=== PATIENT | male | born 1970 | race Caucasian/White ===

== ENCOUNTER 2018-08-03 20:03 | Emergency (ER) | payer SELFPAY ==
[2018-08-03 20:45] VITALS: BP 159/98; PULSE 76; TEMP 99.1; BMI 29.5
[2018-08-03] MEDS ORDERED: DIPHTH,PERTUSS(ACELL),TET 0.5 ML DISP.SYRIN IM ONE (21:14)
--- NOTE | 2018-08-03 21:52 | PDOC ---
History of Present Illness - General Chief Complaint: Laceration Stated Complaint: RIGHT ARM INJURY Time Seen by Provider: 08/03/18 21:05 History Source: Patient Exam Limitations: Language Barrier - History of Present Illness Initial Comments: 08/03/18 21:47 pt at work tripped and fell injured left elbow causing laceration. Past History - Past Medical History Allergies/Adverse Reactions: Allergies Allergy/AdvReac Type Severity Reaction Status Date / Time No Known Allergies Allergy Verified 08/03/18 20:45 Home Medications: Ambulatory Orders NK [No Known Home Medication] 08/03/18 COPD: No - Suicide/Smoking/Psychosocial Hx Smoking History: Never smoked Have you smoked in the past 12 months: Yes Number of Cigarettes Smoked Daily: 2 Information on smoking cessation initiated: No Hx Alcohol Use: No Drug/Substance Use Hx: No Substance Use Type: None *Physical Exam - Vital Signs Last Vital Signs Temp Pulse Resp BP Pulse Ox 99.1 F 76 17 159/98 100 08/03/18 20:42 08/03/18 20:42 08/03/18 20:42 08/03/18 20:42 08/03/18 20:42 - Physical Exam General Appearance: Yes: Nourished, Appropriately Dressed HEENT: positive: EOMI, LEIGHA Extremity: positive: Normal Capillary Refill, Normal Inspection, Normal Range of Motion, Other (left elbow with 5.5 cm linear jagged flap laceration to muscle , tendon intact, FROM of the elbow neg bony tenderness, neg numbness or tingling ) Integumentary: positive: Normal Color, Dry, Warm Neurologic: positive: Fully Oriented, Alert, Normal Mood/Affect, Normal Response , Motor Strength 5/5 Procedures - Laceration/Wound Repair Left Lateral Elbow Wound Length: 5.0 to 7.5 cm Wound Explored: clean Wound's Depth, Shape: into muscle, flap Irrigated w/ Saline: Yes Betadine Prep: Yes Anesthesia: 1% Lidocaine w/ Epi Amount of Anesthetic (ccs): 5 Wound Repaired With: Sutures Suture Size/Type: 4:0, nylon Number of Sutures: 12 Layer Closure: No Sterile Dressing Applied: Yes ED Treatment Course - Medications Given in the ED: ED Medications Discontinued Medications Generic Name Dose Route Start Last Admin Trade Name Freq PRN Reason Stop Dose Admin Diphtheria/Tetanus/Acell Pertussis 0.5 ml 08/03/18 21:14 08/03/18 21:38 Boostrix - IM 08/03/18 21:15 0.5 ml .ONCE ONE Administration Medical Decision Making - Medical Decision Making 08/03/18 21:59 cc: laceration to the elbow after he fell on metal at work 1hr [employer] will update tetanus wound clean pt was wearing long sleeve sweatshirt wound has been irrigated with copious amounts of saline, betadine sutured closed bacitracin and bulky wrap placed dc inst given in venezuelan all translation done via women specialist *DC/Admit/Observation/Transfer Diagnosis at time of Disposition: Laceration - Discharge Dispostion Disposition: HOME Condition at time of disposition: Improved - Referrals - Patient Instructions Printed Discharge Instructions: DI for Laceration Repair Additional Instructions: keep dry remove the dressing in 3 days gently clean daily with warm water on a cotton ball to remove any dried blood apply bacitracin once a day and cover with large sized bandaid make sure the wound is kept dry return in 10 days for suture removal no August 13 after 8am return sooner if any redness, pain or any other concerns Mantener seco quitar el apsito en 3 armstrong. Limpie suavemente diariamente con agua tibia en derrell nigel de algodn para eliminar la mono seca Aplicar bacitracina derrell vez al da y cubrir con bandaid de gran tamao. Asegrate de que la herida se mantenga seca Regrese en 10 armstrong para retirar la sutura el 12 de noviembre despus de las 8 am Regrese antes si hay enrojecimiento, dolor o cualquier otra inquietud. Print Language: GUAMANIAN - Post Discharge Activity Forms/Work/School Notes: Back to Work
== END 2018-08-03 22:06 | disposition home or self-care (01) ==
LOC: JERFT 20:03
PROC: 0JQH0ZZ Repair Left Lower Arm Subcutaneous Tissue and Fascia, Open Approach (ICD-10-PCS; principal; 2018-08-03)
PROC: 3E0234Z Introduction of Serum, Toxoid and Vaccine into Muscle, Percutaneous Approach (ICD-10-PCS; 2018-08-03)
DX: S51.012A Laceration without foreign body of left elbow, initial encounter (principal); W01.0XXA Fall on same level from slipping, tripping and stumbling without subsequent striking against object, initial encounter; Y93.89 Activity, other specified; Y92.63 Factory as the place of occurrence of the external cause; Y99.0 Civilian activity done for income or pay
CPT/HCPCS: 90715; 99281-25

== ENCOUNTER 2018-08-09 23:18 | Emergency (ER) | payer SELFPAY ==
[2018-08-09 23:24] VITALS: BP 140/86; PULSE 75; TEMP 97.5; BMI 28.9
--- NOTE | 2018-08-10 01:10 | PDOC ---
History of Present Illness - General Chief Complaint: Redness To Affected Area Stated Complaint: PAIN Time Seen by Provider: 08/09/18 23:29 History Source: Patient Exam Limitations: Language Barrier (authorization coordinator) - History of Present Illness Initial Comments: 47 y/o M hx of HTN, pre-DM presents with concern for swelling to L elbow x 2 days. Patient was seen 08/03 for L elbow laceration which was repaired with sutures. Patient denies any new trauma to the site, redness, discharge. 08/10/18 01:06 Past History - Past Medical History Allergies/Adverse Reactions: Allergies Allergy/AdvReac Type Severity Reaction Status Date / Time No Known Allergies Allergy Verified 08/03/18 20:45 Home Medications: Ambulatory Orders Sulfamethoxazole/Trimethoprim [Bactrim Ds -] 1 tab PO BID #14 tablet 08/10/18 COPD: No HTN: Yes Other medical history: Pre-DM - Immunization History Immunization Up to Date: Yes - Suicide/Smoking/Psychosocial Hx Smoking History: Never smoked Have you smoked in the past 12 months: Yes Number of Cigarettes Smoked Daily: 2 Hx Alcohol Use: No Drug/Substance Use Hx: No Substance Use Type: None Review of Systems - Review of Systems Comments:: See HPI 08/10/18 01:09 Constitutional: No: Chills, Fever *Physical Exam - Vital Signs Last Vital Signs Temp Pulse Resp BP Pulse Ox 97.5 F L 75 18 140/86 98 08/09/18 23:21 08/09/18 23:21 08/09/18 23:21 08/09/18 23:21 08/09/18 23:21 - Physical Exam Comments: On PE, patient appears in NAD. L elbow with FROM. Sutures intact. No erythema around wound and no discharge noted. Mild swelling noted around suture site with very minimal TTP; no induration or fluctuance to site was noted. 08/10/18 01:09 General Appearance: No: Apparent Distress Medical Decision Making - Medical Decision Making 47 y/o M presents with swelling to L elbow suture site s/p laceration repair 08/03. Site does not appear infected and not concerning for cellulitis or abscess. Also unlikely fracture or hematoma given no new injury, FROM of LUE and no bruise to site. Consider possible early infection given mild pain to site? Will start patient on Bactrim as discussed with Dr. Saba. 08/10/18 01:10 *DC/Admit/Observation/Transfer Diagnosis at time of Disposition: Swelling - Discharge Dispostion Disposition: HOME Condition at time of disposition: Stable Decision to Admit order: No - Prescriptions Prescriptions: Sulfamethoxazole/Trimethoprim [Bactrim Ds -] 1 tab PO BID #14 tablet - Referrals Referrals: Jamaal Greenwood MD [Primary Care Provider] - 3 days - Patient Instructions Additional Instructions: Thank you for choosing [facility]. It was a pleasure taking care of you. You were seen here for swelling along site of prior repaired laceration. Due to concern that this may be possible developing infection, you were started on Bactrim, an antibiotic. You may also take Motrin 600 mg every 4 hours as needed for pain and/or swelling. Take medication with food. Return on 08/13 to get your sutures removed Return to the Emergency Department if your symptoms worsen or persist, you have fever, redness, streaking from wound site, purulent discharge from site or other concerning symptoms. - Post Discharge Activity
[2018-08-10] MEDS ORDERED: SULFAMETHOXAZOLE/TRIMETHOPRIM 800MG/160MG D.S. TABLET PO ONE (01:40)
[2018-08-10] MEDS ORDERED: SULFAMETHOXAZOLE/TRIMETHOPRIM 800MG/160MG D.S. TABLET ONE (01:50)
--- NOTE | 2018-08-10 01:57 | PDOC ---
*Physical Exam - Vital Signs Last Vital Signs Temp Pulse Resp BP Pulse Ox 97.5 F L 75 18 140/86 98 08/09/18 23:21 08/09/18 23:21 08/09/18 23:21 08/09/18 23:21 08/09/18 23:21 - Physical Exam Comments: 08/10/18 01:55 Afebrile, vital signs normal Right forearm: Well healing laceration with intact sutures and no active discharge, there is surrounding soft tissue swelling with subtle erythema and tenderness, no induration or fluctuance. Neurovascularly intact distally without joint effusions. ED Treatment Course - Medications Given in the ED: ED Medications Discontinued Medications Generic Name Dose Route Start Last Admin Trade Name Freq PRN Reason Stop Dose Admin Trimethoprim/Sulfamethoxazole 1 each 08/10/18 01:40 08/10/18 01:52 Bactrim Ds - PO 08/10/18 01:41 1 each ONCE ONE Administration Medical Decision Making - Medical Decision Making 08/10/18 01:56 47-year-old male with recent laceration through close status post repair, now with likely early cellulitis. No evidence of abscess, neurovascularly intact without evidence of sepsis. Initiate antibiotics as outpatient Return criteria discussed, will closely monitor and otherwise return for his scheduled suture removal *DC/Admit/Observation/Transfer Diagnosis at time of Disposition: Swelling - Discharge Dispostion Disposition: HOME Condition at time of disposition: Stable - Referrals Referrals: Jamaal Greenwood MD [Primary Care Provider] - 3 days - Patient Instructions Additional Instructions: Thank you for choosing [facility]. It was a pleasure taking care of you. You were seen here for swelling along site of prior repaired laceration. Due to concern that this may be possible developing infection, you were started on Bactrim, an antibiotic. You may also take Motrin 600 mg every 4 hours as needed for pain and/or swelling. Take medication with food. Return on 08/13 to get your sutures removed Return to the Emergency Department if your symptoms worsen or persist, you have fever, redness, streaking from wound site, purulent discharge from site or other concerning symptoms. - Post Discharge Activity
== END 2018-08-10 01:52 | disposition home or self-care (01) ==
LOC: JER 23:18
DX: R22.32 Localized swelling, mass and lump, left upper limb (principal); S51.012D Laceration without foreign body of left elbow, subsequent encounter; W01.0XXD Fall on same level from slipping, tripping and stumbling without subsequent striking against object, subsequent encounter
CPT/HCPCS: 99281-25

== ENCOUNTER 2018-08-20 07:56 | Emergency (ER) | payer SELFPAY ==
[2018-08-20 08:04] VITALS: BP 134/78; PULSE 68; TEMP 98.3; BMI 31.4
--- NOTE | 2018-08-20 08:41 | PDOC ---
History of Present Illness - General Chief Complaint: Wound Stated Complaint: ARM INJURY Time Seen by Provider: 08/20/18 08:38 History Source: Patient Exam Limitations: Clinical Condition - History of Present Illness Initial Comments: 08/20/18 08:45 Patient with no significant past medical history present with complaint of wound opening up right forearm laceration which have pain over 2 weeks ago. Patient was seen for 2 weeks ago for laceration to right forearm and was closed with sutures and suture removal week after. Patient reported wound opening back up last night. Patient denies pain or drainage from wound site. Timing/Duration: other (2 weeks) Past History - Past Medical History Allergies/Adverse Reactions: Allergies Allergy/AdvReac Type Severity Reaction Status Date / Time No Known Allergies Allergy Verified 08/20/18 08:01 Home Medications: Ambulatory Orders NK [No Known Home Medication] 08/10/18 COPD: No HTN: Yes - Immunization History Immunization Up to Date: Yes - Suicide/Smoking/Psychosocial Hx Smoking History: Current some day smoker Have you smoked in the past 12 months: Yes Number of Cigarettes Smoked Daily: 3 Information on smoking cessation initiated: No Hx Alcohol Use: No Drug/Substance Use Hx: No Substance Use Type: None Review of Systems - Review of Systems Able to Perform ROS?: Yes Is the patient limited Martiniquais proficient: No Constitutional: No: Chills, Fever Respiratory: No: Symptoms reported Cardiac (ROS): No: Symptoms Reported ABD/GI: No: Symptoms Reported Musculoskeletal: Yes: See HPI, Other (right forearm laceration). No: Muscle Pain, Muscle Weakness Integumentary: Yes: Other (right forearm laceration). No: Erythema *Physical Exam - Vital Signs Last Vital Signs Temp Pulse Resp BP Pulse Ox 98.3 F 68 16 134/78 98 08/20/18 08:01 08/20/18 08:01 08/20/18 08:01 08/20/18 08:01 08/20/18 08:01 - Physical Exam General Appearance: Yes: Nourished, Appropriately Dressed. No: Apparent Distress HEENT: positive: Normal ENT Inspection Neck: positive: Supple Respiratory/Chest: negative: Respiratory Distress Cardiovascular: positive: Regular Rhythm, Regular Rate Gastrointestinal/Abdominal: negative: Tender Extremity: positive: Other (4cm laceration with wound dehiscense to lateral side of right proximal forearm. no erythema or drainage from wound site) Integumentary: positive: Other (4cm linear laceration with wound dehiscense to lateral aspect of right forearm) Neurologic: positive: Fully Oriented Procedures - Laceration/Wound Repair Right Posterior Lateral Proximal Arm Wound Length: 2.6 to 5.0 cm (4cm) Wound Explored: clean, no foreign body present Wound's Depth, Shape: superficial Irrigated w/ Saline: Yes Betadine Prep: Yes Amount of Anesthetic (ccs): 0 Wound Repaired With: Steri-strips, Dermabond Sterile Dressing Applied: Yes Splint Applied: No Sling Applied: No Medical Decision Making - Medical Decision Making 08/20/18 08:55 Patient present with complaint of 4 cm wound dehiscence from previous laceration 2 weeks ago. Wound cleaned and closed with Dermabond Bacitracin applied to wound Steri-Strips applied to wound Patient indicated on home wound care. Patient to follow out a PCP in 5-7 days for wound check *DC/Admit/Observation/Transfer Diagnosis at time of Disposition: Laceration Laceration of right forearm without complication Qualifiers: Encounter type: sequela Qualified Code(s): S51.811S - Laceration without foreign body of right forearm, sequela - Discharge Dispostion Disposition: HOME Condition at time of disposition: Stable Decision to Admit order: No - Referrals Referrals: Jamaal Greenwood MD [Primary Care Provider] - - Patient Instructions Printed Discharge Instructions: DI for Laceration Repair With Dermabond Additional Instructions: use home neosporin or bacitracin to wound twice/day until healed. keep steri- strips on for a week and remove. follow-up with PCP in 5-7 days for wound check - Post Discharge Activity
== END 2018-08-20 08:46 | disposition home or self-care (01) ==
LOC: JERFT 07:56
DX: T81.33XA Disruption of traumatic injury wound repair, initial encounter (principal)
CPT/HCPCS: 99281-25

== ENCOUNTER 2018-08-20 20:03 | Emergency (ER) | payer SELFPAY ==
--- NOTE | 2018-08-20 20:05 | PDOC ---
Rapid Medical Evaluation Chief Complaint: Pain, Acute Time Seen by Provider: 08/20/18 20:05 Medical Evaluation: Allergies Allergy/AdvReac Type Severity Reaction Status Date / Time No Known Allergies Allergy Verified 08/20/18 08:01 08/20/18 20:06 47 year old with right arm pain at the laceration site c/o right arm pain x 2 s /p laceration repair and injury PE; patient alert laceration site clean dry and intact A; wound P; patient to fast track for further management of care. 08/20/18 20:08 08/20/18 20:09 Discharge Disposition - Diagnosis Laceration of right forearm without complication Qualifiers: Encounter type: subsequent encounter Qualified Code(s): S51.811D - Laceration without foreign body of right forearm, subsequent encounter - Referrals - Patient Instructions - Post Discharge Activity
[2018-08-20 20:10] VITALS: BP 157/69; PULSE 73; TEMP 98; BMI 31.4
--- NOTE | 2018-08-20 20:32 | PDOC ---
History of Present Illness - General Chief Complaint: Pain Stated Complaint: RIGHT ARM PAIN Time Seen by Provider: 08/20/18 20:05 - History of Present Illness Initial Comments: 08/20/18 20:30 Patient reports for a wound check of a laceration that was sustained 2 weeks ago on the posterior aspect of the right elbow he was concerned because he is diabetic Past History - Past Medical History Allergies/Adverse Reactions: Allergies Allergy/AdvReac Type Severity Reaction Status Date / Time No Known Allergies Allergy Verified 08/20/18 20:10 Home Medications: Ambulatory Orders NK [No Known Home Medication] 08/10/18 COPD: No HTN: Yes - Immunization History Immunization Up to Date: Yes - Suicide/Smoking/Psychosocial Hx Smoking History: Current some day smoker Have you smoked in the past 12 months: Yes Number of Cigarettes Smoked Daily: 3 Information on smoking cessation initiated: No Hx Alcohol Use: No Drug/Substance Use Hx: No Substance Use Type: None Review of Systems - Review of Systems Integumentary: Yes: See HPI *Physical Exam - Vital Signs Last Vital Signs Temp Pulse Resp BP Pulse Ox 98 F 73 18 157/69 98 08/20/18 20:04 08/20/18 20:04 08/20/18 20:04 08/20/18 20:04 08/20/18 20:04 - Physical Exam Comments: 08/20/18 20:31 There is a healing laceration with the edges approximated with Steri-Strips about 2 cm in length at the proximal aspect of the right posterior forearm there is no erythema there is normal surrounding skin color and temperature without areas of fluctuance or sensitivity. There is no induration. She's neurovascularly intact. *DC/Admit/Observation/Transfer Diagnosis at time of Disposition: Laceration of right forearm without complication Qualifiers: Encounter type: subsequent encounter Qualified Code(s): S51.811D - Laceration without foreign body of right forearm, subsequent encounter - Discharge Dispostion Disposition: HOME Condition at time of disposition: Stable Decision to Admit order: No - Referrals Referrals: Jamaal Greenwood MD [Primary Care Provider] - - Patient Instructions Additional Instructions: Return to the emergency room should there be any redness swelling or drainage from the area other than that, he should follow-up with your primary care physician for wound checks about every 3-4 days. Sooner if problems develop. - Post Discharge Activity
== END 2018-08-20 20:40 | disposition home or self-care (01) ==
LOC: JERFT 20:03
DX: S51.811D Laceration without foreign body of right forearm, subsequent encounter (principal); W01.198D Fall on same level from slipping, tripping and stumbling with subsequent striking against other object, subsequent encounter
CPT/HCPCS: 99281-25